=== PATIENT | male | born 1995 | race African-American/Black ===

== ENCOUNTER → 2019-05-08 | Outpatient (CLI) | payer OTHER ==
--- NOTE | 2019-05-09 23:05 | SLEEP ---
DATE OF STUDY: 05/08/2019 HOME SLEEP STUDY ATTENDING PHYSICIAN: Dr. Javier Robertson The patient is a 23-year-old who weighs 180 pounds with a BMI of 29. The patient's Kimberly score was 12. The patient underwent home sleep study performed at [facility]. Total recording time was 466 minutes. During the night study, the patient had 16 obstructive apneas, 302 mixed apneas and no central apneas and 93 hypopneas. The patient's apnea hypopnea index was 53 per hour with a supine index of 68 per hour. Nocturnal oximetry study revealed an average oxygen saturation of 93% with the lowest of 73%. Forty-seven minutes were spent in oxygen saturation less than 90% and 10 minutes with saturation of less than 85%. Mean heart rate was 64 beats per minute with a maximum 118 beats per minute. IMPRESSION: 1. Severe sleep apnea-hypopnea syndrome at an AHI of 53 per hour. 2. Moderate nocturnal hypoxia secondary to obstructive sleep apnea. RECOMMENDATIONS: 1. The patient will benefit from return to the sleep lab for in-lab CPAP titration study. 2. Once the patient is optimally treated, then follow up in 4-6 weeks to assess compliance and to document clinical improvement. 3. Weight loss is strongly advised. 4. Avoid [employer] depressants. 5. Cautioned regarding driving until symptoms of sleep apnea resolve with the use of CPAP. MD TAMIAK CORREA/shubham JOB#: [id number] / [id number] JAVIER Rivera MD
== END | disposition home or self-care (01) ==
LOC: RT 09:20
PROVIDERS: ATTEND Family Medicine
DX: G47.33 Obstructive sleep apnea (adult) (pediatric) (principal); G47.34 Idiopathic sleep related nonobstructive alveolar hypoventilation; R40.0 Somnolence; G47.8 Other sleep disorders; I10 Essential (primary) hypertension
CPT/HCPCS: G0399